=== PATIENT | female | born 1995 | race Caucasian/White ===

== ENCOUNTER 2019-04-24 10:32 | Outpatient (REF) | payer SELFPAY ==
[2019-04-24 19:23] LABS: HCT 40.5 % (36.0-46.0); HGB 14.3 g/dL (12.0-15.5); Mean Corp. HGB Concentration 35.3 g/dL (32.0-36.0); Mean Corpuscular Hemoglobin 30.6 pg (27.0-33.0); Mean Corpuscular Volume 86.5 fL (80-95); Mean Platelet Volume 10.6 fL (8.0-11.0); Platelet Count 256 x1000/uL (130-400); RBC 4.68 m/cumm (4.00-5.20); RBC Distribution Width 12.3 % (11.7-14.6); White Blood Cell Count 3.93 k/cumm (4.4-10.8)
[2019-04-24 19:43] LABS: Mono Screening Negative (Negative)
== END 2019-04-24 10:52 ==
LOC: NCHCN 10:32
PROVIDERS: PCP Physician Assistant Medical; Visit Provider Nurse Practitioner Family
DX: J02.9 Acute pharyngitis, unspecified (principal)
CPT/HCPCS: 85027; 86308; 87070

== ENCOUNTER 2020-03-04 12:19 | Outpatient (REF) | payer SELFPAY ==
[2020-03-04 19:05] LABS: HCT 39.9 % (36.0-46.0); HGB 13.7 g/dL (12.0-15.5); Mean Corp. HGB Concentration 34.3 g/dL (32.0-36.0); Mean Corpuscular Hemoglobin 30.4 pg (27.0-33.0); Mean Corpuscular Volume 88.5 fL (80-95); Mean Platelet Volume 10.8 fL (8.0-11.0); Platelet Count 283 x1000/uL (130-400); RBC 4.51 m/cumm (4.00-5.20); RBC Distribution Width 12.4 % (11.7-14.6); White Blood Cell Count 3.27 k/cumm (4.4-10.8)
[2020-03-04 19:24] LABS: Anion Gap 7.7 mmol/L (3-11); BUN 11 mg/dL (7-18); CO2 28.3 mmol/L (21.0-32.0); CREATININE 0.89 mg/dL (0.55-1.02); Chloride 106 mmol/L (98-107); Glucose 91 mg/dL (74-106); Potassium 4.8 mmol/L (3.5-5.1); Sodium 142 mmol/L (136-145); TSH 1.39 uIU/mL (0.36-3.74)
== END 2020-03-04 12:39 ==
LOC: NCHCN 12:19
PROVIDERS: PCP Physician Assistant Medical; Visit Provider Nurse Practitioner Family
DX: R42 Dizziness and giddiness (principal)
CPT/HCPCS: 80048; 85027; 84443

== ENCOUNTER 2020-04-04 19:56 | Outpatient (REF) | payer OTHER, SELFPAY ==
[2020-04-09 15:35] LABS: SARS-CoV-2 RNA Undetected (Undetected); SARS-CoV-2 Specimen Source Nasopharynx
== END 2020-04-04 20:16 ==
LOC: NCHCN 19:56
PROVIDERS: PCP Physician Assistant Medical; Visit Provider Nurse Practitioner Family
DX: Z11.59 Encounter for screening for other viral diseases (principal)
CPT/HCPCS: U0003

== ENCOUNTER 2020-06-18 14:46 | Outpatient (REF) | payer OTHER, SELFPAY ==
[2020-06-23 06:29] LABS: Patient Race White; SARS-CoV-2 RNA Undetected (Undetected); SARS-CoV-2 Specimen Source Nasopharynx
== END 2020-06-18 15:06 ==
LOC: NCHCN 14:46
PROVIDERS: PCP Physician Assistant Medical; Visit Provider Nurse Practitioner Family
DX: Z20.828 Contact with and (suspected) exposure to other viral communicable diseases (principal)
CPT/HCPCS: U0003

== ENCOUNTER 2020-11-07 18:15 | Outpatient (REF) | payer OTHER, SELFPAY ==
[2020-11-07 18:18] LABS: HGB 14.4 g/dL (11.2-15.7); MCH 30.1 pg (27.0-33.0); MCHC 34.3 % (32.0-36.0); MCV 87.7 fL (80-95); MPV 10.4 fL (8.0-11.0); Platelet Count 306 10^3/uL (130-400); RBC 4.79 10^6/uL (3.93-5.22); RDW 11.6 % (11.7-14.6); RDW-SD 37.5 fL; WBC 4.86 10^3/uL (4.4-10.8)
[2020-11-09 14:15] LABS: COVID-19 RT-PCR UVMMC Result Negative (Negative)
== END 2020-11-07 18:16 | disposition home or self-care (01) ==
LOC: NCHCN 18:15
PROVIDERS: PCP Physician Assistant Medical; Visit Provider Internal Medicine
DX: B34.9 Viral infection, unspecified (principal); Z13.29 Encounter for screening for other suspected endocrine disorder; Z20.822 Contact with and (suspected) exposure to COVID-19
CPT/HCPCS: 85027; U0003; 84443

== ENCOUNTER 2020-11-27 10:10 | Outpatient (REF) | payer OTHER, SELFPAY ==
[2020-11-29 13:07] LABS: COVID-19 RT-PCR UVMMC Result Negative (Negative)
== END 2020-11-27 10:11 | disposition home or self-care (01) ==
LOC: NCHCN 10:10
PROVIDERS: PCP Physician Assistant Medical; Visit Provider Internal Medicine
DX: Z20.828 Contact with and (suspected) exposure to other viral communicable diseases (principal)
CPT/HCPCS: U0003